=== PATIENT | male | born 2000 | race Two or more races ===

== ENCOUNTER 2020-09-29 03:17 | Emergency (ER) | payer OTHER ==
[~2020-09-29] VITALS: Ht 185.4 cm; Wt 60.8 kg
--- NOTE | 2020-09-29 03:42 | NUR ---
bibs for c/o r hand and wrist pain s/p hitting the soccer ball yesterday. No edema noted . pt ambbulatory to bed 17. vss. will cont to monitor ,
[2020-09-29] MEDS ORDERED: IBUPROFEN 400 MG TABLET PO ONE (04:00)
--- NOTE | 2020-09-29 04:16 | NUR ---
called radiology for x.ray
[2020-09-29] MEDS ORDERED: IBUPROFEN 400 MG TABLET ONE (04:18)
--- NOTE | 2020-09-29 05:22 | NUR ---
EMT AT BED SIDE TO APPLY THE SPLINT
[2020-09-29 05:31] VITALS: BP 119/75
--- NOTE | 2020-09-29 05:31 | NUR ---
Patient discharged to home in stable condition. rx and Written and verbal after care instructions given. Patient verbalizes understanding of instruction.
== END 2020-09-29 05:31 | disposition home or self-care (01) ==
LOC: ER 03:19
DX: S52.514A Nondisplaced fracture of right radial styloid process, initial encounter for closed fracture (principal); F17.200 Nicotine dependence, unspecified, uncomplicated; Z98.890 Other specified postprocedural states; W21.02XA Struck by soccer ball, initial encounter; Y93.66 Activity, soccer; Y92.322 Soccer field as the place of occurrence of the external cause; Y99.8 Other external cause status
CPT/HCPCS: 73110; 73130-TC

== ENCOUNTER 2021-03-06 19:08 | Emergency (ER) | payer OTHER ==
[~2021-03-06] VITALS: Ht 185.4 cm; Wt 62.6 kg
--- NOTE | 2021-03-06 19:22 | NUR ---
PT BIBSELF C/O CHEST PRESSURE X4 DAYS. PT AAOX4 BREATHING EVENLY AND UNLABORED. PT ATTACHED TO MONITOR AND POX. PER PT, HE HAS BEEN UNDER "A TON OF STRESS". PT SKIN IS WARM, DRY, AND INTACT. PT GIVEN BLANKET AND CALL LIGHT WITHIN REACH
[2021-03-06] MEDS ORDERED: ALPR0.5T PO (20:09)
--- NOTE | 2021-03-06 20:10 | NUR ---
Patient discharged to home in stable condition. Written and verbal after care instructions given. Patient verbalizes understanding of instruction. pT ambulatory with a steady gait
[2021-03-06 20:16] VITALS: BP 62/109
== END 2021-03-06 20:10 | disposition home or self-care (01) ==
LOC: ER 19:10
DX: R07.89 Other chest pain (principal); F41.9 Anxiety disorder, unspecified; F12.90 Cannabis use, unspecified, uncomplicated; Z98.890 Other specified postprocedural states; Z79.899 Other long term (current) drug therapy

== ENCOUNTER 2021-05-16 18:56 | Emergency (ER) | payer OTHER ==
[~2021-05-16] VITALS: Ht 185.4 cm; Wt 61.2 kg
[~2021-05-16 18:56] MED LIST: ALPR0.5T PO
[2021-05-16 19:29] VITALS: BP 97/57
[2021-05-16] MEDS ORDERED: METOCLOPRAMIDE HCL 10 MG/2 ML VIAL ONE (20:11)
[2021-05-16] MEDS ORDERED: KETOROLAC TROMETHAMINE 15 MG/ML VIAL ONE (20:11)
[2021-05-16] MEDS ORDERED: diphenhydrAMINE HCL 50 MG/ML VIAL ONE (20:11)
[2021-05-16] MEDS ORDERED: diphenhydrAMINE HCL 50 MG/ML VIAL IV ONE (20:30)
[2021-05-16] MEDS ORDERED: IV NS 0.9% 1,000 ML IV ONE (20:30)
[2021-05-16] MEDS ORDERED: METOCLOPRAMIDE HCL 10 MG/2 ML VIAL IV ONE (20:30)
[2021-05-16] MEDS ORDERED: KETOROLAC TROMETHAMINE INJ 30 MG/ML VIAL IV ONE (20:30)
--- NOTE | 2021-05-16 20:45 | NUR ---
Patient discharged to home in stable condition. Written and verbal after care instructions given. Patient verbalizes understanding of instruction. pT ambulatory with a steady gait
[2021-05-16] MEDS ORDERED: IBUP-1955 PO (20:52)
== END 2021-05-16 20:45 | disposition home or self-care (01) ==
LOC: ER 19:03
DX: R51.9 Headache, unspecified (principal); F12.90 Cannabis use, unspecified, uncomplicated; Z98.890 Other specified postprocedural states; Z79.899 Other long term (current) drug therapy
CPT/HCPCS: 96372; 99283; J1885; J2765; J7030; J1200